=== PATIENT | female | born 1970 | race Caucasian/White ===

== ENCOUNTER 2017-01-21 23:26 | Emergency (ER) | payer BC ==
[~2017-01-21] VITALS: Ht 175.2 cm; Wt 88.0 kg
[~2017-01-21 23:26] MED LIST: ADDERALL 30 MG30 MG PO; ATARAX25 MG PO; MEDROL DOSEPAK4 MG PO; TESSALON PERLE100 M1 PO; VALTREX500 MG PO; VIBRAMYCIN100 MG PO; WELLBUTRIN75 MG
[2017-01-21] MEDS ORDERED: OMEPRAZOLE40 MG PO (23:35)
[2017-01-21] MEDS ORDERED: Wellbutrin Sr100 MG PO (23:35)
[2017-01-21] MEDS ORDERED: ESCITALOPRAM OX20 MG PO (23:36)
[2017-01-21] MEDS ORDERED: ALPRAZOLAM0.5 M3 PO (23:36)
[2017-01-22] MEDS ORDERED: HYDROCODONE BIT1 T11 PO (01:19)
== END 2017-01-22 02:42 | disposition home or self-care (01) ==
LOC: ED 23:26
DX: S53.104A Unspecified dislocation of right ulnohumeral joint, initial encounter (principal); Q71.9 Unspecified reduction defect of upper limb; F17.200 Nicotine dependence, unspecified, uncomplicated; Z88.1 Allergy status to other antibiotic agents; Z91.040 Latex allergy status; W18.09XA Striking against other object with subsequent fall, initial encounter; Y93.89 Activity, other specified; Y92.9 Unspecified place or not applicable; Y99.9 Unspecified external cause status

== ENCOUNTER → 2017-07-03 | Outpatient (CLI) | payer BC ==
[~2017-07-03] MED LIST changes: +ALPRAZOLAM0.5 M3 PO; +ESCITALOPRAM OX20 MG PO; +HYDROCODONE BIT1 T11 PO; +OMEPRAZOLE40 MG PO; +Wellbutrin Sr100 MG PO
== END | disposition home or self-care (01) ==
LOC: CARD 04:50
DX: I10 Essential (primary) hypertension (principal)

== ENCOUNTER → 2018-04-23 | Outpatient (CLI) | payer BC | END | disposition home or self-care (01) | LOC: MAMMO 15:20 | DX: Z12.31 Encounter for screening mammogram for malignant neoplasm of breast (principal) ==

== ENCOUNTER → 2019-05-29 | Outpatient (CLI) | payer BC | END | disposition home or self-care (01) | LOC: RAD 16:48 | DX: M25.561 Pain in right knee (principal); M25.562 Pain in left knee; R53.1 Weakness ==

== ENCOUNTER → 2020-10-19 | Outpatient (CLI) | payer BC ==
[~2020-10-19] MED LIST changes: +ADDERALL 20 MG20 MG PO; -ADDERALL 30 MG30 MG PO; +BYSTOLIC10 MG PO; +DIOVAN160 M2 PO; +PROTONIX40 MG PO; +WELLBUTRIN XL300 MG PO; -Wellbutrin Sr100 MG PO
== END | disposition home or self-care (01) ==
LOC: CARD 00:28
PROVIDERS: ATTEND Internal Medicine Cardiovascular Disease
DX: R07.2 Precordial pain (principal)

== ENCOUNTER → 2021-05-26 | Outpatient (CLI) | payer BC | END | disposition home or self-care (01) | LOC: US 16:17 | PROVIDERS: ATTEND Podiatrist | DX: R60.0 Localized edema (principal); M79.662 Pain in left lower leg ==

== ENCOUNTER → 2021-07-08 | Outpatient (CLI) | payer BC | END | disposition home or self-care (01) | LOC: COVID19 16:51 | PROVIDERS: ATTEND Podiatrist Foot & Ankle Surgery | DX: Z11.52 Encounter for screening for COVID-19 (principal) ==

== ENCOUNTER → 2024-11-17 | Outpatient (CLI) | payer BC | END | disposition home or self-care (01) | LOC: MAMMO 09-08 14:00 | PROVIDERS: ATTEND Nurse Practitioner Family | DX: Z12.31 Encounter for screening mammogram for malignant neoplasm of breast (principal); R92.333 Mammographic heterogeneous density, bilateral breasts; R92.323 Mammographic fibroglandular density, bilateral breasts ==

== ENCOUNTER 2024-12-17 16:24 | Emergency (ER) | payer BC ==
[~2024-12-17] VITALS: Wt 92.5 kg
[2024-12-17] MEDS ORDERED: diphenhydrAMINE hydrochloride 50 MG/ML VIAL IV ONE (16:30)
[2024-12-17] MEDS ORDERED: SODIUM CHLORIDE 0.9% 1,000 ML IV ONE (16:30)
[2024-12-17] MEDS ORDERED: EPINEPHrine Hydrochloride 1 MG/ML AMP IM ONE (16:30)
[2024-12-17] MEDS ORDERED: methylPREDNISolone sod succ 125 MG VIAL IV ONE (16:30)
[2024-12-17] MEDS ORDERED: FAMOTIDINE 50 ML IV ONE (16:30)
[2024-12-17] MEDS ORDERED: EPIPEN 2-P0.3 MG/0.3 IJ (16:31)
[2024-12-17 16:51] LABS: BASO % 0.4 % (0.0-1.0); EOS # 0.2 10*3/uL (0.0-0.4); EOS % 1.8 % (1.0-4.0); HEMATOCRIT 43.6 % (37.0-47.0); MEAN CELL VOLUME 97.3 fl (81.0-99.0); MEAN CORPUSCULAR HGB CONC 33.9 g/dl (33.0-37.0); MEAN PLATELET VOLUME 9.6 fl (9.6-12.3); MONO # 0.5 10*3/uL (0.1-1.0); MONO % 5.4 % (3.0-9.0); NEUT # 5.3 10*3/uL (2.3-7.9); NEUT % 54.6 % (47.0-73.0); PLATELET COUNT AUTOMATED 323 10*3/uL (130-400); RED BLOOD COUNT 4.48 10*6/uL (4.10-5.10); RED CELL DISTRI WIDTH 12.4 % (0-14.5); WHITE BLOOD COUNT 9.6 10*3/uL (4.8-10.8)
[2024-12-17 17:11] LABS: BUN 10 mg/dl (9-23); CHLORIDE 102 mmol/L (98-107); POTASSIUM 4.2 mmol/L (3.4-5.1)
== END 2024-12-17 17:31 | disposition home or self-care (01) ==
LOC: ED 16:24
PROVIDERS: Emergency Medicine
DX: T78.2XXA Anaphylactic shock, unspecified, initial encounter (principal); I10 Essential (primary) hypertension; J45.909 Unspecified asthma, uncomplicated; F32.A Depression, unspecified; Z79.899 Other long term (current) drug therapy; Z88.1 Allergy status to other antibiotic agents; Z91.040 Latex allergy status; Z91.018 Allergy to other foods; Z90.710 Acquired absence of both cervix and uterus; Z98.890 Other specified postprocedural states; X58.XXXA Exposure to other specified factors, initial encounter